=== PATIENT | male | born 1980 | race Caucasian/White ===

== ENCOUNTER 2016-12-30 23:43 | Emergency (ER) | payer MEDICAID ==
[~2016-12-30] VITALS: Ht 185.4 cm; Wt 113.9 kg
[~2016-12-30 23:43] MED LIST: ADAL40PE2 SQ; METO50TA82 PO; ONDA8TAB12 PO; OXYC-229 PO; OXYC30TA74 PO; PROM25TA10 PO; QUET300T5 PO; RING10003 IV
[2016-12-30 23:45] VITALS: BP 171/110
== END 2016-12-31 00:40 | disposition home or self-care (01) ==
LOC: ED 23:59
DX: Z76.0 Encounter for issue of repeat prescription (principal); K50.90 Crohn's disease, unspecified, without complications
CPT/HCPCS: 99283